=== PATIENT | male | born 1955 | race Caucasian/White ===

== ENCOUNTER → 2019-10-06 | Outpatient (CLI) | payer BC ==
[~2019-10-06] MED LIST: CARV12.543 PO; DABI150C PO; DIGO250T3 PO; LEVO88TA4 PO; LISI-465 PO; LOVA40TA2 PO
== END | disposition home or self-care (01) ==
LOC: CFH 09:05
PROVIDERS: ATTEND Internal Medicine Cardiovascular Disease
DX: I08.3 Combined rheumatic disorders of mitral, aortic and tricuspid valves (principal); I48.91 Unspecified atrial fibrillation; I10 Essential (primary) hypertension; E78.5 Hyperlipidemia, unspecified; R73.01 Impaired fasting glucose
CPT/HCPCS: 93306

== ENCOUNTER → 2019-11-26 | Outpatient (CLI) | payer BC ==
[~2019-11-26] MED LIST changes: +REGADENOSON 0.4 MG/5 ML SYRINGE ONE
== END | disposition home or self-care (01) ==
LOC: CFH 07:35
PROVIDERS: ATTEND Internal Medicine Cardiovascular Disease
DX: I25.89 Other forms of chronic ischemic heart disease (principal); I10 Essential (primary) hypertension; I42.9 Cardiomyopathy, unspecified; I48.91 Unspecified atrial fibrillation
CPT/HCPCS: 78452; 93017; A9502; J2785

== ENCOUNTER → 2020-01-13 | Day surgery (SDC) | payer BC ==
[~2020-01-13] MED LIST changes: -REGADENOSON 0.4 MG/5 ML SYRINGE ONE
== END | disposition home or self-care (01) ==
LOC: CACL 08:55
PROVIDERS: ATTEND Internal Medicine Cardiovascular Disease
DX: Z02.9 Encounter for administrative examinations, unspecified (principal)

== ENCOUNTER 2020-02-10 09:47 | Day surgery (SDC) | payer BC ==
[~2020-02-10] VITALS: Ht 175.3 cm; Wt 84.1 kg
[2020-02-10 10:21] VITALS: BP 130/93
[2020-02-10] MEDS ORDERED: SODIUM CHLORIDE 0.9% 1,000 ML IV SCH (10:30)
[2020-02-10] MEDS ORDERED: SOTA80TA PO (10:32)
[2020-02-10] MEDS ORDERED: APIX5TAB PO (10:32)
[2020-02-10] MEDS ORDERED: LOSA100T14 PO (10:32)
[2020-02-10] MEDS ORDERED: AMLO-150 PO (10:32)
[2020-02-10] MEDS ORDERED: ATOR20TA37 PO (10:32)
[2020-02-10] MEDS ORDERED: ASPIRIN 325 MG TABLET EC ONE (10:54)
[2020-02-10] MEDS ORDERED: ASPIRIN 325 MG TABLET EC PO ONE (11:00)
== END 2020-02-10 15:05 | disposition home or self-care (01) ==
LOC: CACL 09:47
PROVIDERS: ATTEND Internal Medicine Cardiovascular Disease
DX: I48.0 Paroxysmal atrial fibrillation (principal); I25.118 Atherosclerotic heart disease of native coronary artery with other forms of angina pectoris; I25.84 Coronary atherosclerosis due to calcified coronary lesion; I42.9 Cardiomyopathy, unspecified; I10 Essential (primary) hypertension; E78.5 Hyperlipidemia, unspecified; E03.9 Hypothyroidism, unspecified; F12.10 Cannabis abuse, uncomplicated; Z79.01 Long term (current) use of anticoagulants; Z79.890 Hormone replacement therapy; Z79.899 Other long term (current) drug therapy; Z87.891 Personal history of nicotine dependence; Z88.0 Allergy status to penicillin
CPT/HCPCS: 93005; 93458; 93571; 99156; 99157; C1769; Q9967; J1644; J2250; J3010